=== PATIENT | male | born 1950 | race Two or more races ===

== ENCOUNTER 2024-07-24 06:43 | Inpatient (IN) | payer MEDICARE, MEDICAID ==
[~2024-07-24] VITALS: Ht 195.6 cm; Wt 79.8 kg
--- NOTE | 2024-07-24 06:49 | ED.PDOC ---
Back pain HPI HPI Comments HPI: Chronic pain to left hip x5 years, pain flared up on Sunday after Cortisone injection. 73-year-old female brought in by ambulance from home for evaluation of acute on chronic hip pain. Patient had a cortisone injection last Sunday and developed pain immediately after the procedure. contacted the orthopedic doctor who advised her to follow up in the ER. did not bring the patient until today. Patient comes from home. Pain is only worse when he moves or stands. Otherwise patient is resting in the gurney comfortably. Denies any acute symptoms. No cauda equina symptoms. states the patient has pneumonia but not currently on antibiotics. She states he has a cough and had chest pain workup and she specifically states that this chest pain is not cardiac in nature. She said that they had a recent cardiac workup which was unremarkable. Denies any fall or trauma or injury. also states that the patient has some lung masses that it is getting evaluated for possible cancer. Patient has remote history of throat cancer status post radiation. PATIENT USED DILAUDID TWICE A DAY AT HOME. PATIENT FOLLOWS WITH PAIN MANAGEMENT. Initial Vitals BP: 118/78 HR: 102 RR: 18 O2: 99% Temp: 98.2F Past Medical History: Parkinson's, Throat Cancer s/p radiation treatment, Pneumonia, Cortisone injection to Lt Hip x Sunday, Hard of Hearing Past Surgical History: Spinal/Bladder Stimulator, Spinal surgery Social History: Denies ETOH, smoking, and drug use. Medications: Cortisone injection Allergies: Codeine HPI: Poor Historian. REVIEW OF SYSTEMS: CONSTITUTIONAL: Denies acute: fever, diaphoresis, chills, generalized weakness. HEAD: Denies acute: headache, photophobia Eyes: Denies acute: Double vision, vision loss, eye pain, eye discharge. EARS: Denies acute: tinnitus, hearing loss, ear discharge, ear pain, THROAT: Denies acute: sore throat, swelling, difficulty swallowing , pain with swallowing, change in voice. NECK: Denies acute: neck pain, neck swelling, stiff neck. HEART: Denies acute : chest pain, palpitations, LUNGS: Denies acute: SOB, wheezing, cough, hemoptysis ABDOMEN: Denies acute: abdominal pain, Nausea, Vomiting, diarrhea, melena , hematemesis, hematochezia SKIN: Denies acute: rash, redness, lesions, itchiness. EXTREMITIES: Denies acute: calf pain, numbness, tingling, weakness, denies pain in extremity. Neuro: Denies acute: focal neurological deficit, motor or sensory focal neurological deficit, tremors, seizure like activity, confusion, dizziness, change in mental status, loss of bowel or bladder function, cauda equina like symptoms. : Denies acute: dysuria, hematuria, flank pain, increase in urinary frequency. PSYCH: Denies acute: hallucination, suicidal ideation, homicidal ideation. PHYSICAL EXAM: General: ----mild----acute distress, awake and alert. Head: normocephalic, atraumatic. Neck: supple, trachea is midline, no swelling. Throat: Normal phonation. Eyes:, no erythema, no purulent discharge, no proptosis, no icterus. Heart: regular rate, regular rhythm, no significant murmur appreciated. Lungs: no apparent respiratory distress, Able to speak in full sentences. No wheezing, no rhonchi, no crackles. No stridors Clear to auscultation bilaterally. Abdomen: non tender to palpation, non distended, soft, no guarding, no rebound, + bowel sounds. Evaluation of the area of pain. Patient points specifically to his left lateral hip area mostly where he had his injection last Sunday. Neuro: Awake, Alert, oriented to name, self, situation, follows commands. Patient has resting tremors with a history of Parkinson's disease. Mentation is At baseline per at bedside. Patient is hard of hearing. Speech is normal. Skin: no petechia, no purpura, no cyanosis, non-pale, not jaundice. Lower extremities: --trace bilateral - Pitting edema no deformity, no focal swelling, no calf TTP. Makes eye contact. moves all four extremities. Face: no apparent facial droop. ED COURSE: Chief Complaint: Lower Extremity Time Seen by MD: 06:46 Reviewed Notes: Medications, Allergies Allergies: Coded Allergies: Codeine (Verified Allergy, Unknown, 07/24/24) Home Meds Reported Medications Divalproex Sodium (Divalproex Sodium Dr) 500 Mg Tab, 1 TAB PO BID 6/12/25 Ergocalciferol (Vitamin D) 50,000 Unit Cap, 1 CAP PO QWEEKLY 07/24/24 Lubiprostone (Lubiprostone) 24 Mcg Cap, CAP PO 07/24/24 Levothyroxine Sodium (Levothyroxine Sodium) 125 Mcg Tab, 1 TAB PO DAILY 07/24/24 Primidone (MYSOLINE TABLET) 50 Mg Tb, TAB PO 07/24/24 Midodrine Hcl (Midodrine Hcl) 5 Mg Tab, 3 TAB PO BID 07/24/24 Venlafaxine Hcl (Venlafaxine Hcl Er) 75 Mg Cap, 1 CAP PO DAILY 07/24/24 Vibegron (Gemtesa) 75 Mg Tab, 1 TAB PO DAILY 07/24/24 Omeprazole (Omeprazole Dr) 20 Mg Cap, 1 CAP PO QAM 07/24/24 Information Source: Patient, Emergency Med Personnel, Spouse Mode of Arrival: EMS Was a procedure done? Was a procedure done?: No Back Pain Differential Dx Differential Diagnosis: Fracture, Musculoskeletal Pain, Other (Tendon/ligamental injury, arthritis, bursitis, sepsis, referred pain) X-Ray, Labs, Meds, VS Vital Signs Date Time Temp Pulse Resp B/P (MAP) Pulse Ox O2 Delivery O2 Flow Rate FiO2 07/24/24 09:55 82 13 129/80 (96) 93 07/24/24 09:50 90 19 149/73 07/24/24 08:00 84 07/24/24 07:56 84 19 94 Room Air* 0 21 07/24/24 07:55 98.7 83 19 118/78 (91) 93 98.7 07/24/24 06:45 98.2 102 18 118/78 (91) 99 98.2 Lab Test 07/24/24 07:45 Range/Units White Blood Count 9.6 4.4-10.8 10^3/uL Red Blood Count 3.39 L 4.5-5.90 10^6/uL Hemoglobin 11.3 L 13.5-17.5 g/dL Hematocrit 33.1 L 41.0-53.0 % Mean Corpuscular Volume 97.5 80.0-100.0 fL Mean Corpuscular Hemoglobin 33.4 H 28.0-32.0 pg Mean Corpuscular Hemoglobin Concent 34.3 32.0-36.0 g/dL Red Cell Distribution Width 13.3 11.8-14.3 % Platelet Count 219 140-450 10^3/uL Mean Platelet Volume 8.7 6.9-10.8 fL Neutrophils (%) (Auto) 61.7 37.0-80.0 % Lymphocytes (%) (Auto) 26.1 10.0-50.0 % Monocytes (%) (Auto) 9.8 0.0-12.0 % Eosinophils (%) (Auto) 1.8 0.0-7.0 % Basophils (%) (Auto) 0.6 0.0-2.0 % Neutrophils # (Auto) 6.0 1.6-8.6 10 ^3/uL Lymphocytes # (Auto) 2.5 0.4-5.4 10 ^3/uL Monocytes # (Auto) 0.9 0-1.3 10 ^3/uL Eosinophils # (Auto) 0.2 0-0.8 10 ^3/uL Basophils # (Auto) 0.1 0-0.2 10 ^3/uL Nucleated Red Blood Cells 0.0 % Sodium Level 142 136-145 mmol/L Potassium Level 3.8 3.5-5.1 mmol/L Chloride Level 103 98-107 mmol/L Carbon Dioxide Level 26 20-31 mmol/L Anion Gap 13 5-15 Blood Urea Nitrogen 30 H 9-23 mg/dL Creatinine 1.47 H 0.700-1.30 mg/dL Glomerular Filtration Rate Calc 51 >90 mL/min BUN/Creatinine Ratio 20.4 H 10.0-20.0 Serum Glucose 82 74-106 mg/dL Lactic Acid Level 1.7 0.4-2.0 mmol/L Calcium Level 9.7 8.7-10.4 mg/dL Troponin I High Sensitivity 14 </=54 ng/L C-Reactive Protein High Sensitivity 4.96 H <1.0 mg/dL [address] [address] Ph: [phone] DIAGNOSTIC IMAGING Diagnostic Imaging Report : [id number] Signed PATIENT: LOUISE SHERWOOD ACCT: [id number] UNIT: [id number] : 1950 LOC: ER ROOM / BED: / AGE / SEX: 73 / M ADM STATUS: REG ER SERVICE 5 ORDERING PHYSICIAN: ANABELLA STOUT DO PROCEDURE(s): CXRP - CHEST PORTABLE REASON: L hip pain s/p injection. cough ORDER NUMBER(s): [id number], ACCESSION NUMBER(s): [id number] CHEST RADIOGRAPH Indication: L hip pain s/p injection. cough Technique: Single frontal view of the chest was obtained Comparison: None FINDINGS: Lines and Tubes: None Lungs: Left upper lobe density noted. Pleura: No effusion. No pneumothorax. Cardiomediastinal contours: Unremarkable Bones: No acute osseous abnormality. IMPRESSION: 1. Left upper lobe density. A CT scan of the chest without contrast is recommended. Underlying mass is not excluded. ATED BY: SUMEET MONTEZ MD DICTATED DATE/TIME: 07/24/24723 SIGNED BY: SUMEET MONTEZ MD SIGNED DATE/TIME: 07/24/24723 CC: Images Reviewed?: Images reviewed and evaluated by me Time of 1ST Reevaluation: 07:46 Reevaluation 1ST: Unchanged Patient Education/Counseling: Diagnosis, Treatment Family Education/Counseling: Diagnosis, Treatment Comments Patient presented with the above HPI.-acute exacerbation of chronic hip pain-----workup was initiated. patient was found with the above mentioned diagnosis. the following medications were ordered: please refer to order lists of meds and tests obtained by myself Dr. Stout. Patient ED course and VS have been stabilized. Patient has been reassessed in the ED and remained in a stable condition. Pertinent incidental findings were discussed with the patient and/or family. Patient/family voices understanding and is agreeable with plan. Patient has been observed in the ED adequate length of time to insure improvement/stability. Escalation of care considered: Consideration of escalation to observation or admission Patient requiring Dilaudid for pain control. Patient already has Dilaudid at home but it is not sufficient. Patient was ADMITTED to the medicine team for further evaluation and treatment of their presentation. All the reports of any imaging studies that were ordered by myself were reviewed by myself. Departure 1 Departure Time of Disposition: 10:24 Impression: Primary Impression: Chronic hip pain Disposition: ADMITTED INPATIENT Admit to: Tele Condition: Guarded Discharged With: Self Critical Care Note Critical Care Time?: No I personally scribed for ANABELLA STOUT DO ([email or web address]) on 07/24/24 at 06:49. Electronically submitted by Bubba Tim ([email or web address]). I personally scribed for ANABELLA STOUT DO ([email or web address]) on 07/24/24 at 07:29. Electronically submitted by Bubba Tim ([email or web address]). I personally scribed for ANABELLA STOUT DO ([email or web address]) on 07/24/24 at 07:32. Electronically submitted by Bubba Tim ([email or web address]). ANABELLA STOUT DO Jul 24, 2024 06:49
--- NOTE | 2024-07-24 07:26 | DVH ---
CHEST RADIOGRAPH Indication: L hip pain s/p injection. cough Technique: Single frontal view of the chest was obtained Comparison: None FINDINGS: Lines and Tubes: None Lungs: Left upper lobe density noted. Pleura: No effusion. No pneumothorax. Cardiomediastinal contours: Unremarkable Bones: No acute osseous abnormality. IMPRESSION: 1. Left upper lobe density. A CT scan of the chest without contrast is recommended. Underlying mass is not excluded.
--- NOTE | 2024-07-24 07:54 | DVH ---
CLINICAL INFORMATION: Left hip pain status post injection. Cough. TECHNIQUE: Axial CT images of the abdomen and pelvis were obtained without IV contrast. Coronal and s agittal reformatted images were obtained, reviewed, and stored. Evaluation of the parenchymal organs is limited without IV contrast. Evaluation of the bowel and mesentery is limited without oral contras t. All CT scans at this medical facility are performed using dose modulation techniques as appropriat e to a performed exam including the following: Automated exposure control was utilized; adjustment of the MA and/or KV according to patient size; and use of iterative reconstruction technique. CTDIvol = 15.69 mGy DLP = 764.36 mGy-cm COMPARISON: None FINDINGS: Lung bases: Atelectasis in the lung bases, right greater than left. Bronchial wall thickening in the lower lobes bilaterally with some mucoid impaction in the right lower lobe bronchi. There are calcifi ed pleural plaques in the lateral and posterior aspects of the right lung. Liver: Nodular contour of the liver, may be seen with cirrhosis in the appropriate clinical setting. Biliary: Cholecystectomy. Spleen: Unremarkable. Pancreas: Moderate atrophy. Adrenal glands: Right adrenal nodule measures up to 2.1 cm with indeterminate density Kidneys: No hydronephrosis. Small bilateral nonobstructing renal calculi, including a 4 mm calculus i n the right renal pelvis. No obstructing calculi visualized. There are bilateral renal renal lesions, some of which are fluid density and likely simple cysts, while other lesions demonstrate increased d ensity, possibly proteinaceous cysts. Aorta/Vascular: Dense atherosclerotic calcification. No abdominal aortic aneurysm. Retroperitoneum: No mass or lymphadenopathy. Bowel/mesentery: Mildly distended fluid-filled small bowel loops. No transition point to suggest smal l bowel obstruction. Appendix is not visualized. Moderate stool in the colon. Pelvic organs: Grossly unremarkable. Bladder: Unremarkable. No mass. Abdominal wall: No mass or hernia. There are stimulator devices in the gluteal subcutaneous tissues b ilaterally, with the right stimulator device lead extending to the right presacral soft tissues in th e left stimulator lead extending into the spinal canal at the L1-L2 level and coursing cephalad along the right side of the spinal canal to the T12 level. Bones: No acute fracture or suspicious intraosseous lesion. IMPRESSION: 1. Nonspecific mildly distended fluid-filled small bowel loops. Findings may be seen with ileus or en teritis in the appropriate clinical setting. No small bowel obstruction. 2. Cirrhotic liver morphology. 3. Indeterminate right adrenal nodule. Nonemergent adrenal protocol MRI or CT recommended. 4. Bilateral renal lesions, some of which are consistent with simple cysts. Higher density lesions ar e likely proteinaceous cysts, however further evaluation with renal mass protocol CT or MRI recommend ed. 5. Atelectasis in the lung bases. Areas of bronchial wall thickening are seen in the lower lobes bila terally with mucoid impaction in the right lower lobe bronchi. 6. Additional findings as detailed above.
[2024-07-24 07:56] VITALS: PULSE 84; RESP 19; O2SAT 94
[2024-07-24 08:08] LABS: Basophils # (auto) 0.1 10 ^3/uL (0-0.2); Basophils % (auto) 0.6 % (0.0-2.0); Eosinophils # (auto) 0.2 10 ^3/uL (0-0.8); Eosinophils % (auto) 1.8 % (0.0-7.0); Hematocrit 33.1 % (41.0-53.0); Hemoglobin 11.3 g/dL (13.5-17.5); Lymphocytes # (auto) 2.5 10 ^3/uL (0.4-5.4); Lymphocytes % (auto) 26.1 % (10.0-50.0); Mean Corpuscular Hemoglobin 33.4 pg (28.0-32.0); Mean Corpuscular Hgb Conc. 34.3 g/dL (32.0-36.0); Mean Corpuscular Volume 97.5 fL (80.0-100.0); Monocytes # (auto) 0.9 10 ^3/uL (0-1.3); Monocytes % (auto) 9.8 % (0.0-12.0); Neutrophils % (auto) 61.7 % (37.0-80.0); Platelet Count (auto) 219 10^3/uL (140-450); Red Blood Cells 3.39 10^6/uL (4.5-5.90); Red Cell Distribution Width 13.3 % (11.8-14.3); White Blood Cell 9.6 10^3/uL (4.4-10.8)
[2024-07-24] MEDS: SODIUM CHLORIDE 0.9% 1,000 ML IV ONE (09:48)
[2024-07-24] MEDS: HYDROmorphone HCL 2 MG/ML VL/or syr IV ONE (09:50)
[2024-07-24] MEDS ORDERED: NITROGLYCERIN 0.4 MG SL TAB SL PRN (10:45)
[2024-07-24] MEDS ORDERED: ONDANSETRON HCL 4 MG/2 ML VIAL IV PRN (10:45)
[2024-07-24] MEDS ORDERED: ACETAMINOPHEN 325 MG TAB PO PRN (10:45)
[2024-07-24] MEDS ORDERED: VIBE75TA PO (12:07)
[2024-07-24] MEDS ORDERED: VENL75CA78 PO (12:07)
[2024-07-24] MEDS ORDERED: OMEP1CAP70 PO (12:07)
[2024-07-24] MEDS ORDERED: LEVO125T7 PO (12:07)
[2024-07-24] MEDS ORDERED: ERGO1CAP12 PO (12:07)
[2024-07-24] MEDS ORDERED: MIDO5TAB4 PO (12:07)
[2024-07-24] MEDS ORDERED: DIVA1TAB59 PO (12:07)
[2024-07-24] MEDS ORDERED: PRIM50TA5 PO (12:07)
[2024-07-24] MEDS ORDERED: LUBI24CA12 PO (12:07)
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
[2024-07-24] MEDS ORDERED: ERGOCALCIFEROL 50,000 UNIT(1.25MG) CAP PO SCH (12:15)
[2024-07-24] MEDS: SODIUM CHLORIDE 0.9% 1,000 ML IV SCH (12:25)
--- NOTE | 2024-07-24 12:38 | DVH ---
CT HEAD WITHOUT CONTRAST INDICATION: fall COMPARISON: None TECHNIQUE: CT of the head without intravenous contrast. RADIATION DOSE: CTDIvol: 33 mGy, DLP: 626 mGy*cm FINDINGS: There is no evidence of acute intracranial hemorrhage, extra-axial collection, mass effect, midline s hift, herniation or hydrocephalus. The ventricles, sulci and cisterns are age appropriate. The bhatti -white differentiation is intact. The visualized paranasal sinuses and mastoid air cells are clear. The surrounding soft tissues and osseous structures are unremarkable. IMPRESSION: 1. No evidence of acute intracranial hemorrhage, mass effect or hydrocephalus.
--- NOTE | 2024-07-24 12:47 | DVH ---
EXAM: XY R ELBOW 2V XRAY CLINICAL INDICATION: fall TECHNIQUE: XY R ELBOW 2V XRAY Comparison: None FINDINGS/IMPRESSION: There is no evidence of acute fracture or dislocation. The visualized joint space is well maintained. The alignment is anatomical. There is no radiopaque foreign body.
--- NOTE | 2024-07-24 12:49 | DVH ---
Right HIP RADIOGRAPH. CLINICAL INDICATION: pain TECHNIQUE: 2 views of the bilateral hip were obtained. FINDINGS: There is no evidence of fracture, subluxation or dislocation. Moderate bilateral hip osteoa rthritis. Battery pack overlying the bilateral sacrum. The bony mineralization is normal.No radiopaqu e foreign body is identified. IMPRESSION: 1. No evidence of acute bony injury.
[2024-07-24] MEDS ORDERED: PRIMIDONE 50 MG TAB PO SCH (14:10)
[2024-07-24 14:52] LABS: Urine Bacteria None Seen /hpf (None Seen)
[2024-07-24 15:26] LABS: Urine Blood Negative /uL (Negative); Urine Clarity Clear (Clear); Urine Color Yellow (Yellow); Urine Hyaline Cast FEW /lpf (0 - 2); Urine Mucus FEW (None Seen); Urine Protein, UAD Negative (Negative); Urine Specific Gravity 1.017 (1.001-1.035); Urine Squamous Epithelial Cell FEW /hpf (<5); Urine Urobilinogen Normal (Negative); Urine WBC 2 /HPF (0-3); Urine pH 5.5 (5.0-9.0)
[2024-07-24 15:48] VITALS: BP 144/68; PULSE 84; RESP 18; TEMP 98; O2SAT 96
[2024-07-24 16:27] LABS: Anion Gap 13 (5-15); Carbon Dioxide 26 mmol/L (20-31); Chloride 103 mmol/L (98-107); Glucose 82 mg/dL (74-106); Potassium 3.8 mmol/L (3.5-5.1); Sodium 142 mmol/L (136-145)
[2024-07-24 16:28] LABS: BUN/Creatinine Ratio 20.4 (10.0-20.0); Blood Urea Nitrogen 30 mg/dL (9-23); CRP High Sensitivity 4.96 mg/dL (<1.0); Calcium 9.7 mg/dL (8.7-10.4)
[2024-07-24] MEDS: HYDROmorphone HCL 2 MG/ML VL/or syr IV PRN (17:42)
[2024-07-24] MEDS: MIDODRINE HCL 10 MG TAB PO SCH (17:45)
[2024-07-24] MEDS: cefTRIAXone 1GM/50ML D5W 50 ML IV SCH (17:57)
[2024-07-24] MEDS ORDERED: MIDODRINE HCL 10 MG TAB PO SCH (18:00)
[2024-07-24 20:00] VITALS: RESP 16
[2024-07-24 21:00] VITALS: BP 120/62; PULSE 90; RESP 19; TEMP 97.2; O2SAT 93
[2024-07-25 01:00] VITALS: BP 132/67; PULSE 86; RESP 19; TEMP 97.2; O2SAT 96
[2024-07-25 05:00] VITALS: BP 125/65; PULSE 86; RESP 19; TEMP 97.4; O2SAT 96
[2024-07-25] MEDS ORDERED: KETOROLAC TROMETH 30 MG/ML 1ML VIAL IV ONE (06:45)
[2024-07-25] MEDS: PANTOPRAZOLE 40 MG TAB PO SCH (06:58)
[2024-07-25] MEDS: LEVOTHYROXINE SODIUM 50 MCG TAB PO SCH (06:59)
[2024-07-25] MEDS: KETOROLAC TROMETH 30 MG/ML 1ML VIAL IV ONE (07:00)
[2024-07-25 07:22] LABS: Basophils # (auto) 0 10 ^3/uL (0-0.2); Basophils % (auto) 0.7 % (0.0-2.0); Eosinophils # (auto) 0.4 10 ^3/uL (0-0.8); Eosinophils % (auto) 5.5 % (0.0-7.0); Hematocrit 29.9 % (41.0-53.0); Hemoglobin 10.2 g/dL (13.5-17.5); Lymphocytes # (auto) 2.3 10 ^3/uL (0.4-5.4); Lymphocytes % (auto) 32.5 % (10.0-50.0); Mean Corpuscular Hemoglobin 33.2 pg (28.0-32.0); Mean Corpuscular Hgb Conc. 34.2 g/dL (32.0-36.0); Mean Corpuscular Volume 97.2 fL (80.0-100.0); Monocytes # (auto) 0.6 10 ^3/uL (0-1.3); Monocytes % (auto) 9.4 % (0.0-12.0); Neutrophils # (auto) 3.6 10 ^3/uL (1.6-8.6); Neutrophils % (auto) 51.9 % (37.0-80.0); Nucleated Red Blood Cells % 0.1 %; Platelet Count (auto) 161 10^3/uL (140-450); Red Blood Cells 3.07 10^6/uL (4.5-5.90); Red Cell Distribution Width 13.7 % (11.8-14.3); White Blood Cell 6.9 10^3/uL (4.4-10.8)
[2024-07-25 07:31] LABS: Alanine Aminotransferase 26 U/L (7-40); Albumin 3.5 g/dL (3.2-4.8); Alkaline Phosphatase 113 U/L (46-116); Anion Gap 7 (5-15); BUN/Creatinine Ratio 17.4 (10.0-20.0); Blood Urea Nitrogen 19 mg/dL (9-23); Calcium 8.7 mg/dL (8.7-10.4); Carbon Dioxide 28 mmol/L (20-31); Chloride 106 mmol/L (98-107); Glucose 77 mg/dL (74-106); Potassium 3.8 mmol/L (3.5-5.1); Sodium 141 mmol/L (136-145); Total Protein 6.4 g/dL (5.7-8.2)
[2024-07-25 07:36] LABS: Aspartate Aminotransferase 44 U/L (<34); Bilirubin, Total 0.2 mg/dL (0.2-1.0)
[2024-07-25] MEDS: ENOXAPARIN SOD 40 MG/0.4 ML SYRINGE SC SCH (08:22)
[2024-07-25] MEDS: VENLAFAXINE HCL 37.5mg XR cap PO SCH (08:22)
[2024-07-25] MEDS: VIBEGRON 75 MG PO SCH (08:22)
[2024-07-25 09:00] VITALS: BP 107/57; PULSE 62; RESP 16; TEMP 97.8; O2SAT 98
--- NOTE | 2024-07-25 12:31 | DVHPN2 ---
Reviewed: Care Plan, H&P, Labs, Medications, Previous Orders, Radiology Changes from previous H/P or p: No Changes Musculoskeletal: other (Bilateral hip pain) Objective Vitals Vital Signs Date Time Temp Pulse Resp B/P (MAP) Pulse Ox O2 Delivery O2 Flow Rate FiO2 07/25/24 11:09 86 16 149/76 07/25/24 08:05 Room Air* 0 21 07/25/24 05:00 97.4 96 97.4 Intake/Output Intake and Output 07/25/24 07:00 Intake Total 1350 ml Balance 1350 ml Intake Oral 300 ml IV Total 1050 ml # Voids 6 Medications Current Medications Medications Dose Ordered Sig/Mary Jane Route Start Time Stop Time Status Last Admin Dose Admin Ondansetron HCl 4 mg Q4HP PRN IV 07/24/24 10:45 Acetaminophen 650 mg Q6HP PRN PO 07/24/24 10:45 Nitroglycerin 0.4 mg Q5MINP PRN SL 07/24/24 10:45 Enoxaparin Sodium 40 mg DAILY SC 07/25/24 10:00 Ergocalciferol 50,000 unit QWEEKLY PO 07/24/24 12:15 Hold Primidone 50 mg DAILY PO 07/24/24 14:10 Hold Divalproex Sodium 500 mg BID PO 07/24/24 22:00 07/25/24 08:22 500 MG Levothyroxine Sodium 125 mcg QAM PO 07/25/24 07:00 07/25/24 06:59 125 MCG Pantoprazole Sodium 40 mg QAM PO 07/25/24 07:00 07/25/24 06:58 40 MG Venlafaxine HCl 75 mg DAILY PO 07/25/24 10:00 07/25/24 08:22 75 MG Patient Own Medication 1 tab DAILY PO 07/25/24 10:00 Sodium Chloride 1,000 ml @ 100 mls/hr Q10H IV 07/24/24 12:15 07/24/24 12:25 100 MLS/HR Ceftriaxone Sodium 50 ml @ 100 mls/hr DAILY@09 IV 07/24/24 16:30 07/25/24 08:21 100 MLS/HR Hydromorphone HCl 2 mg Q8HPRN PRN IV 07/24/24 17:00 07/25/24 10:39 2 MG Midodrine 10 mg BID@0500,1700 PO 07/24/24 17:01 07/25/24 05:22 10 MG Laboratory Results Laboratory Tests 07/25/24 04:26 Chemistry Test 07/25/24 04:26 Albumin 3.5 g/dL (3.2-4.8) Calcium Level 8.7 mg/dL (8.7-10.4) Total Protein 6.4 g/dL (5.7-8.2) LFT Test 07/25/24 04:26 Alanine Aminotransferase (ALT) 26 U/L (7-40) Alkaline Phosphatase 113 U/L (46-116) Aspartate Amino Transferase (AST) 44 U/L (<34) H Total Bilirubin 0.2 mg/dL (0.2-1.0) Urinalysis Test 07/24/24 14:29 Urine Color Yellow (Yellow) Urine Clarity Clear (Clear) Urine pH 5.5 (5.0-9.0) Urine Specific [place] 1.017 (1.001-1.035) Urine Protein Negative (Negative) Urine Ketones Negative (Negative) Urine Blood Negative /uL (Negative) Urine Nitrite Negative (Negative) Urine Bilirubin Negative (Negative) Urine Urobilinogen Normal mg/dL (Negative) Urine Leukocyte Esterase Negative /uL (Negative) Urine RBC 1 /hpf (0 - 3) Urine Microscopic WBC 2 /HPF (0-3) Urine Squamous Epithelial Cells Few /hpf (<5) Urine Bacteria None seen /hpf (None Seen) Urine Hyaline Casts Few /lpf (0 - 2) Urine Mucus Few (None Seen) Urine Glucose Trace mg/dL (Normal) Labs and/or images reviewed: Labs reviewed by me, Image(s) reviewed by me Assessment/Plan Assessment/Plan Intractable bilateral hip pain bilateral hip x-rays negative Anemia MOHSEN Probable ileus versus enteritis Left upper lobe density Right lower lobe mucoid impaction possibly infection Parkinson's History of throat cancer status post radiation Possible community-acquired pneumonia Gram-positive versus Gram-negative: Rocephin Status post personal stimulator History of seizures: Depakote Hypothyroidism: Synthroid History of spine surgery History of [place] Recurrent falls at home abrasion forearm and elbow x-rays negative CT head negative Wheelchair-bound Time Spent 75 minutes Advanced care planning time 20 minutes Patient is full code Plan discussed with: Patient Date of Service: Jul 25, 2024 Billing Provider: RADHA FRIEND MD Common Visit Codes: [id number] INP/OBS CARE(HIGH) RADHA FRIEND MD Jul 25, 2024 12:31
--- NOTE | 2024-07-25 12:58 | DVHDS2 ---
Discharge Summary Date of Admission Jul 24, 2024 at 10:44 Date of Discharge: Jul 25, 2024 Admitting Diagnosis Bilateral hip pain Wounds: None Labs/Diagnostic Data: Laboratory Results Test 07/25/24 04:26 07/24/24 14:29 07/24/24 07:45 White Blood Count 6.9 10^3/uL (4.4-10.8) Red Blood Count 3.07 10^6/uL (4.5-5.90) Hemoglobin 10.2 g/dL (13.5-17.5) Hematocrit 29.9 % (41.0-53.0) Mean Corpuscular Volume 97.2 fL (80.0-100.0) Mean Corpuscular Hemoglobin 33.2 pg (28.0-32.0) Mean Corpuscular Hemoglobin Concent 34.2 g/dL (32.0-36.0) Red Cell Distribution Width 13.7 % (11.8-14.3) Platelet Count 161 10^3/uL (140-450) Mean Platelet Volume 8.6 fL (6.9-10.8) Neutrophils (%) (Auto) 51.9 % (37.0-80.0) Lymphocytes (%) (Auto) 32.5 % (10.0-50.0) Monocytes (%) (Auto) 9.4 % (0.0-12.0) Eosinophils (%) (Auto) 5.5 % (0.0-7.0) Basophils (%) (Auto) 0.7 % (0.0-2.0) Neutrophils # (Auto) 3.6 10 ^3/uL (1.6-8.6) Lymphocytes # (Auto) 2.3 10 ^3/uL (0.4-5.4) Monocytes # (Auto) 0.6 10 ^3/uL (0-1.3) Eosinophils # (Auto) 0.4 10 ^3/uL (0-0.8) Basophils # (Auto) 0 10 ^3/uL (0-0.2) Nucleated Red Blood Cells 0.1 % Sodium Level 141 mmol/L (136-145) Potassium Level 3.8 mmol/L (3.5-5.1) Chloride Level 106 mmol/L (98-107) Carbon Dioxide Level 28 mmol/L (20-31) Anion Gap 7 (5-15) Blood Urea Nitrogen 19 mg/dL (9-23) Creatinine 1.09 mg/dL (0.700-1.30) Glomerular Filtration Rate Calc 73 mL/min (>90) BUN/Creatinine Ratio 17.4 (10.0-20.0) Serum Glucose 77 mg/dL (74-106) Calcium Level 8.7 mg/dL (8.7-10.4) Total Bilirubin 0.2 mg/dL (0.2-1.0) Aspartate Amino Transferase (AST) 44 U/L (<34) Alanine Aminotransferase (ALT) 26 U/L (7-40) Alkaline Phosphatase 113 U/L (46-116) Total Protein 6.4 g/dL (5.7-8.2) Albumin 3.5 g/dL (3.2-4.8) Urine Color Yellow (Yellow) Urine Clarity Clear (Clear) Urine pH 5.5 (5.0-9.0) Urine Specific [place] 1.017 (1.001-1.035) Urine Protein Negative (Negative) Urine Ketones Negative (Negative) Urine Blood Negative /uL (Negative) Urine Nitrite Negative (Negative) Urine Bilirubin Negative (Negative) Urine Urobilinogen Normal mg/dL (Negative) Urine Leukocyte Esterase Negative /uL (Negative) Urine RBC 1 /hpf (0 - 3) Urine Microscopic WBC 2 /HPF (0-3) Urine Squamous Epithelial Cells Few /hpf (<5) Urine Bacteria None seen /hpf (None Seen) Urine Hyaline Casts Few /lpf (0 - 2) Urine Mucus Few (None Seen) Urine Glucose Trace mg/dL (Normal) Lactic Acid Level 1.7 mmol/L (0.4-2.0) Troponin I High Sensitivity 14 ng/L (</=54) C-Reactive Protein High Sensitivity 4.96 mg/dL (<1.0) Other Laboratory Tests 07/25/24 04:26 Brief Hx & Hospital Course: 73-year-old male with a history of Parkinson's throat cancer status post radiation spinal surgery status post pain stimulator history of [place] history of seizures chronic bilateral hip pain on pain management burden by as he was complaining of pain in the bilateral hips and he recently had a short in the left hip. Multiple x-rays were negative CT head negative bilateral hip x-rays negative elbow x-ray negative minor bruise with the forehead and elbow secondary to falls. Patient's Leigha at bedside and requesting patient to be discharged today itself. Advised to continue the home medications and discharged home Consults/Reason for consult none Operations or Procedures CT head x-ray of the bilateral hips x-ray of the elbow Condition at Discharge: Fair Final Diagnosis/Problems List Intractable bilateral hip pain bilateral hip x-rays negative Anemia MOHSEN Probable ileus versus enteritis Left upper lobe density Right lower lobe mucoid impaction possibly infection Parkinson's History of throat cancer status post radiation Possible community-acquired pneumonia Gram-positive versus Gram-negative: Rocephin Status post personal stimulator History of seizures: Depakote Hypothyroidism: Synthroid History of spine surgery History of [place] Recurrent falls at home abrasion forearm and elbow x-rays negative CT head negative Wheelchair-bound Discharge Disposition: Home Discharge Instruct/Medications Diet: Cardiac 2g Na,low cholest Activity: Light activity Follow Up/Referral: Follow up with the primary Dr and pain management Dr Medications: none 35 (Time taken for discharge summary 35 minutes) Discharge Statement: "Patient was advised to return to the ER or call 911 if any headaches, dizziness, shortness of breath, chest pain, abdominal pain, bleeding, fevers, or worsening of medical condition. Patient was counseled about treatment plan, medications, possible side effects, patientverbalized understanding. All questions were answered to the best of my ability. This discharge took greater then 30 minutes in planning, reviewing documentation, counseling the patient, and discussing with other team members." ASSESSMENT ASSESSMENT Hospital Course Improved Assessment Intractable bilateral hip pain bilateral hip x-rays negative Anemia MOHSEN Probable ileus versus enteritis Left upper lobe density Right lower lobe mucoid impaction possibly infection Parkinson's History of throat cancer status post radiation Possible community-acquired pneumonia Gram-positive versus Gram-negative: Rocephin Status post personal stimulator History of seizures: Depakote Hypothyroidism: Synthroid History of spine surgery History of [place] Recurrent falls at home abrasion forearm and elbow x-rays negative CT head negative Wheelchair-bound Date of Service: Jul 25, 2024 Billing Provider: RADHA FRIEND MD Common Visit Codes: [id number] DISCH DAY >30min RADHA FRIEND MD Jul 25, 2024 12:58
[2024-07-25 13:00] VITALS: BP 100/56; PULSE 86; RESP 16; TEMP 97.5; O2SAT 98
[2024-07-25 14:48] VITALS: BP 100/56; PULSE 86; RESP 16; TEMP 97.5; O2SAT 98
== END 2024-07-25 15:50 | disposition home or self-care (01) | DRG 553 ==
LOC: EDBD 06:43 → ER 06:43 → OVERFLOW 10:44 → WEST WING 12:10
PROVIDERS: ADMIT Family Medicine; ATTEND Family Medicine
DX: M16.0 Bilateral primary osteoarthritis of hip (principal); J15.69 Pneumonia due to other Gram-negative bacteria; J15.9 Unspecified bacterial pneumonia; K56.7 Ileus, unspecified; N17.9 Acute kidney failure, unspecified; D64.9 Anemia, unspecified; K52.9 Noninfective gastroenteritis and colitis, unspecified; G89.29 Other chronic pain; J98.4 Other disorders of lung; G20.A1 Parkinson's disease without dyskinesia, without mention of fluctuations; E03.9 Hypothyroidism, unspecified; Z92.3 Personal history of irradiation; Z85.819 Personal history of malignant neoplasm of unspecified site of lip, oral cavity, and pharynx; Z90.49 Acquired absence of other specified parts of digestive tract; Z80.3 Family history of malignant neoplasm of breast; Z85.6 Personal history of leukemia; Z88.5 Allergy status to narcotic agent; I25.2 Old myocardial infarction; Z99.3 Dependence on wheelchair
CPT/HCPCS: 36415; 70450; 71045; 73070; 73501; 74176; 80048; 80053; 81001; 83605; 84484; 85025; 86141; 96361; 96374; G0378; J1885